=== PATIENT | female | born 1945 | race Caucasian/White ===

== ENCOUNTER 2017-11-28 18:17 | Observation (INO) | payer MEDICARE, MEDICAID ==
[~2017-11-28] VITALS: Ht 157.5 cm; Wt 60.0 kg
[~2017-11-28 18:17] MED LIST: AMLODIPINE BESYL5 MG PO; CALCIUM + D600 MG PO; CEPHALEXIN500 M1 OR; CLARITIN10 MG PO; DARVOCET N-100100 - OR; FEOSOL65 MG PO; FLAXSEED OIL1000 M1 PO; FLEXERIL OR; FLUTICASONE50 MCG; GINKGO BILOB120 MG PO; MAGNESIUM250 M1 PO; MEDDOSEPAK OR; NO HOME MEDS; PERCOCET 10/31 COMBO PO; PRILOSEC20 MG/CAP PO; PROAIR HFA IN; VITAMIN B-12500 MC1 SL; XANAX0.5 MG PO; [UNRECOGNIZED DRUG - OTHER] PO
[2017-11-28 19:53] LABS: HEMATOCRIT 35.3 % (37.0-47.0); HEMOGLOBIN 11.7 g/dl (12.0-16.0); IMMATURE GRANULOCYTES 0.2 % (0.0-5.0); MEAN CELL VOLUME 97.8 fL CALC (80.0-100.0); MEAN CORPUSCULAR HGB 32.4 pG CALC (26.0-32.0); MEAN CORPUSCULAR HGB CONC 33.1 g/L CALC (32.0-36.0); NEUT# 2.52 thou/uL (2.00-7.15); RED BLOOD COUNT 3.61 mill/uL (4.20-5.60); RED CELL DISTRI WIDTH 12.4 % (11.5-15.5)
[2017-11-28 20:10] LABS: ALBUMIN 4.5 g/dL (3.2-5.0); ALKALINE PHOSPHATASE 78 u/l (38-126); ANION GAP 12 (6-22 (CALC)); BILIRUBIN, TOTAL 0.7 mg/dL (0.0-1.4); BUN 19 mg/dL (8-23); BUN/CREATININE RATIO 32 (12-20 (CALC)); CARBON DIOXIDE 28 mmol/l (22-30); CHLORIDE 104 mmol/l (95-108); CREATININE 0.6 mg/dL (0.5-1.0); GFR > 60 ML/MIN (>=60 (CALC)); GFR FOR AFR.AMER. > 60 ML/MIN (>=60 (CALC)); POTASSIUM 3.8 mmol/l (3.5-5.1); SGOT/AST 39 u/l (9-36); SGPT/ALT 34 u/l (11-66); SODIUM 141 mmol/l (137-146); TOTAL PROTEIN 7.7 g/dL (6.3-8.2)
[2017-11-28 20:12] LABS: URINE BILIRUBIN - DIPSTICK NEGATIVE (NEGATIVE); URINE BLOOD DIPSTICK TRACE-INTACT (NEGATIVE); URINE COLOR YELLOW; URINE GLUCOSE - DIPSTICK NEGATIVE (NEGATIVE); URINE KETONE NEGATIVE (NEGATIVE); URINE LEUK ESTERASE NEGATIVE (NEGATIVE); URINE NITRITE - DIPSTICK NEGATIVE (Negative); URINE PH 6.5 (4.5-8.0); URINE PROTEIN - DIPSTICK NEGATIVE (NEG-TRACE); URINE SPECIFIC GRAVITY 1.015; URINE UROBILINOGEN - DIPSTICK 0.2 E.U./dL (0.2)
[2017-11-28 20:13] LABS: URINE CLARITY CLEAR
[2017-11-28 20:22] LABS: MYOGLOBIN 35 ng/mL (0 - 62)
[2017-11-28] MEDS ORDERED: GABAPENTIN100 MG PO (21:13)
[2017-11-28 21:20] VITALS: BP 157/78
[2017-11-28] MEDS ORDERED: NORVASC2.5 MG PO (22:16)
[2017-11-29 00:36] VITALS: BP 148/75
[2017-11-29 05:00] VITALS: BP 128/79
[2017-11-29 06:01] LABS: CHOLESTEROL HDL RATIO 2.2 (<4.4 (CALC))
[2017-11-29 08:10] VITALS: BP 133/83
[2017-11-29 11:58] VITALS: BP 120/77
[2017-11-29] MEDS ORDERED: ASPIRIN ADULT L81 M2 PO (13:45)
== END 2017-11-29 14:45 | disposition home or self-care (01) ==
LOC: ED 18:17 → ED-I 20:00 → ED 20:36 → MS2 20:37
PROVIDERS: Emergency Medicine; ADMIT Internal Medicine; ATTEND Internal Medicine
DX: R55 Syncope and collapse (principal); R00.2 Palpitations; I10 Essential (primary) hypertension; G62.9 Polyneuropathy, unspecified; Z86.73 Personal history of transient ischemic attack (TIA), and cerebral infarction without residual deficits

== ENCOUNTER 2018-04-02 07:52 | Day surgery (SDC) | payer MEDICARE, MEDICAID ==
[~2018-04-02] VITALS: Ht 157.5 cm; Wt 59.9 kg
[~2018-04-02 07:52] MED LIST changes: +ASPIRIN ADULT L81 M2 PO; +COQ10100 MG PO; +GABAPENTIN100 MG PO; +IRON45 MG PO; +METOPROLOL SUCC25 MG PO; +NORVASC2.5 MG PO; +SG ASA LOW81 M1 PO
[2018-04-02 10:44] VITALS: BP 179/88
== END 2018-04-02 11:05 | disposition home or self-care (01) ==
LOC: ENDO 07:52
PROVIDERS: ATTEND Surgery
PROC: 0DJD8ZZ Inspection of Lower Intestinal Tract, Via Natural or Artificial Opening Endoscopic (ICD-10-PCS; principal; 2018-04-02)
DX: Z12.11 Encounter for screening for malignant neoplasm of colon (principal); Z80.0 Family history of malignant neoplasm of digestive organs

== ENCOUNTER → 2018-07-14 | Outpatient (REF) | payer MEDICARE, MEDICAID ==
[2018-07-14 07:42] LABS: HEMATOCRIT 35.8 % (37.0-47.0); HEMOGLOBIN 11.4 g/dl (12.0-16.0); IMMATURE GRANULOCYTES 0.4 % (0.0-5.0); MEAN CELL VOLUME 99.2 fL CALC (80.0-100.0); MEAN CORPUSCULAR HGB 31.6 pG CALC (26.0-32.0); MEAN CORPUSCULAR HGB CONC 31.8 g/L CALC (32.0-36.0); NEUT# 2.98 thou/uL (2.00-7.15); RED BLOOD COUNT 3.61 mill/uL (4.20-5.60); RED CELL DISTRI WIDTH 12.3 % (11.5-15.5)
[2018-07-14 08:23] LABS: ALBUMIN 4.4 g/dL (3.2-5.0); ALKALINE PHOSPHATASE 63 u/l (38-126); ANION GAP 13 (6-22 (CALC)); BILIRUBIN, TOTAL 0.7 mg/dL (0.0-1.4); BUN 15 mg/dL (8-23); BUN/CREATININE RATIO 27 (12-20 (CALC)); CALCULATED LDLCHOLESTEROL 94 mg/dL (62-129 (CALC)); CARBON DIOXIDE 29 mmol/l (22-30); CHLORIDE 104 mmol/l (95-108); CHOLESTEROL HDL RATIO 2.2 (<4.4 (CALC)); CREATININE 0.6 mg/dL (0.5-1.0); GFR > 60 ML/MIN (>=60 (CALC)); GFR FOR AFR.AMER. > 60 ML/MIN (>=60 (CALC)); HDL CHOLESTEROL 89 mg/dL (>=40); POTASSIUM 4.3 mmol/l (3.5-5.1); SGOT/AST 29 u/l (9-36); SODIUM 141 mmol/l (137-146); TOTAL CHOLESTEROL 192 mg/dl (0-199); TOTAL PROTEIN 6.9 g/dL (6.3-8.2); TOTAL TRIGLYCERIDES 48 mg/dl (30-149); VLDL CHOLESTROL 10 mg/dl (0-48 (CALC))
[2018-07-14 08:46] LABS: TSH, 3RD GENERATION 1.41 uIU/mL (0.47 - 4.68)
== END | disposition home or self-care (01) ==
LOC: LAB 07:03
PROVIDERS: Internal Medicine; ATTEND Internal Medicine
DX: E03.9 Hypothyroidism, unspecified (principal); E11.65 Type 2 diabetes mellitus with hyperglycemia; E55.9 Vitamin D deficiency, unspecified; E78.49 Other hyperlipidemia; I10 Essential (primary) hypertension; M81.0 Age-related osteoporosis without current pathological fracture

== ENCOUNTER 2021-01-13 12:17 | Observation (INO) | payer MEDICARE, MEDICAID ==
[~2021-01-13] VITALS: Ht 157.5 cm; Wt 70.0 kg
--- NOTE | 2021-01-13 12:20 | NUR ---
PATIENT STATES PAIN TO LEFT SIDE OF CHEFT WALL WHERE SHE HAS TEGADERM PLACED FOR HALTER MONITOR. EKG COMPLETED AND MD NOTIFIED
--- NOTE | 2021-01-13 13:20 | NUR ---
PATEINT DENIES ANY CHEST PAIN AT THIS TIME AWAITNG LAB AND RADIOLOGY RESULTS
--- NOTE | 2021-01-13 14:34 | NUR ---
PT TO ROOM # 2. PLACED ON CARDIAC AND BP MONITORS. PT REPORTS BELCHING NUMEROUS TIMES WHILE WAITING IN THE LOBBY AND FEELS BETTER NOW. EDP NOTIFIED. CALL FLOWERS WITHIN REACH
[2021-01-13] MEDS ORDERED: METOPROLOL SUCC50 MG PO (15:12)
[2021-01-13 15:13] LABS: HEMATOCRIT 35.2 % (37.0-47.0); HEMOGLOBIN 11.5 g/dl (12.0-16.0); MEAN CELL VOLUME 99.2 fL CALC (80.0-100.0); MEAN CORPUSCULAR HGB 32.4 pG CALC (26.0-32.0); MEAN CORPUSCULAR HGB CONC 32.7 g/dL CAL (32.0-36.0); NEUT# 2.97 thou/uL (2.00-7.15); RED BLOOD COUNT 3.55 mill/uL (4.20-5.60); RED CELL DISTRI WIDTH 12.2 % (11.5-15.5)
[2021-01-13] MEDS ORDERED: ASPIRINCHW 81MG PO (15:13)
[2021-01-13] MEDS ORDERED: MP MAGNESIUM100 MG PO (15:14)
[2021-01-13] MEDS ORDERED: MULTI VIT PO (15:14)
[2021-01-13] MEDS ORDERED: VITAMIN C500 M6 PO (15:16)
[2021-01-13] MEDS ORDERED: ELDERBERRY PO (15:16)
[2021-01-13 15:25] LABS: ALBUMIN 4.7 g/dL (3.2-5.0); ALKALINE PHOSPHATASE 67 u/l (38-126); ANION GAP 13 (6-22 (CALC)); BILIRUBIN, TOTAL 0.8 mg/dL (0.0-1.4); BUN 18 mg/dL (8-23); BUN/CREATININE RATIO 33 (12-20 (CALC)); CARBON DIOXIDE 31 mmol/l (22-30); CHLORIDE 97 mmol/l (95-108); CREATININE 0.5 mg/dL (0.5-1.0); GFR > 60 ML/MIN (>=60 (CALC)); GFR FOR AFR.AMER. > 60 ML/MIN (>=60 (CALC)); POTASSIUM 4.1 mmol/l (3.5-5.1); SGOT/AST 41 u/l (9-36); SODIUM 136 mmol/l (137-146)
--- NOTE | 2021-01-13 18:22 | NUR ---
REPORT CALLED TO BK IN MED SURG
--- NOTE | 2021-01-13 18:25 | NUR ---
PATIENT TRANSPORTED TO [facility] / [facility]
[2021-01-13 18:26] VITALS: BP 136/78
--- NOTE | 2021-01-13 18:33 | NUR ---
PT ARRIVED TO [facility] ROOM 271 VIA WHEELCHAIR ACCOMPAINED BY ER STAFF. PT IS A/O X3. RESPIRATIONS ARE EVEN AND UNLABORED WITH DISTRESS NOTED. #20G RAC IN PLACE. TELE MONITORING IN PLACE. PT ORIENTED TO ROOM AND CALL LIGHT SYSTEM. ALL SAFTEY PRECAUTIONS ARE IN PLACE WITH CALL LIGHT IN REACH. WILL CONTINUE TO MONITOR.
--- NOTE | 2021-01-13 19:50 | NUR ---
TALKED WITH LAB PHLEBOT.REGARDING NEED FOR 1800 TROPONIN SHOWING NOT RECEIVED. STATED THEY WOULD BE UP SHORTLY TO GET. IF THEY DO NOT COME TO THE FLOOR I WILL DRAW THIS LAB AND SEND DOWN.
[2021-01-13 20:10] VITALS: BP 122/66
--- NOTE | 2021-01-13 20:34 | NUR ---
LAB CALLED TO REPORT POSITIVE TROP OF 0.896. PREVIOUS TROP WAS NEG. V/S ASSESSED TO BE STABLE. TELEMETRY READING OF SR79, PT C/O "MILD PRESSURE TO L.SIDE OF CHEST JUST BELOW EXTERNAL HEART MONITOR". SHE DENIES N/V AND IS NOT DIAPHORETIC. DENIES JAW OR ARM PAIN AT THIS TIME. SHE DOES REPORT "BELCHING AND GASINESS." EKG OBTAINED AND PHYSICIAN WAS NOTIFIED. NEW ORDERS FOR HEPARIN DRIP AND TRANSFER TO [facility]. SUPERVISION WAS NOTIFIED AND TRANSFER PROCEDURES WERE STARTED.
[2021-01-13 20:40] VITALS: BP 133/67
--- NOTE | 2021-01-13 22:00 | NUR ---
PTT/INR LABS HAVE BEEN ORDERED, AWAITING RESULTS FOR BOLUS AND HEP DRIP TO BE STARTED. PT DENIES ANY CHANGES IN SYMPTOMS OTHER THAN SHARP PAIN IN L.CALF THAT LASTED ONE MINUTE AND WENT AWAY. NO S/O REDNESS, NOT HOT TO THE TOUCH AT THIS TIME. POC DISCUSSED WITH THE PT, SHE STATES "I FEEL LIKE THIS IS JUST A LOT OF FUSS OVER NOTHING." I EDUCATED HER ON WHAT THE LAB RESULTS MEAN AND WHAT POC THAT MAY BE NEEDED FOR FURTHER CARE. SHE AGREED TO TRANSFER. WILL FOLLOW W/CONSENT FORM WHEN HAVE AN ACCEPTING HOSPITAL.
--- NOTE | 2021-01-13 22:10 | NUR ---
[facility] HAS REPORTED THAT THEY DO NOT HAVE ANY AVAILABLE BEDS AT THIS TIME AND THEY REQUEST PT BE TRANSPORTED TO A DIFFERENT HOSPITAL W/PT'S ANIMAL HERDER HAS CARDIAC PRACTICING PRIVILEGES.
--- NOTE | 2021-01-13 22:20 | NUR ---
[facility], [facility] AND [facility] CONTACTED WITH NO BEDS AVAILABLE AT THIS TIME. AWAITING POSSIBLE BED ASSIGNMENT FROM [facility]. PT STABLE AT THIS TIME.
[2021-01-13 23:04] LABS: ACT PARTIAL THROMBO TIME 25.1 SECONDS (20.0-32.5); PROTHROMBIN TIME 10.4 SECONDS (9.0-12.5)
[2021-01-13 23:34] VITALS: BP 112/60; BP 133/67
--- NOTE | 2021-01-14 00:25 | NUR ---
LAB ON FLOOR FOR TROPONIN DRAW.
--- NOTE | 2021-01-14 00:40 | NUR ---
SUPERVISION CONTACTING MULTIPLE HOSPITALS IN THE REGION FOR PT TRANSPORT. [facility], [facility]. NO AVAILABLE BEDS AT THIS TIME.
--- NOTE | 2021-01-14 02:10 | NUR ---
BED ASSIGNMENT RECIEVED FROM [facility]. RECEIVING PHYSICIAN REPORTED TO BE DR. Shantanu MATHIS, BED [id number] [facility]. [facility] CONTACTED FOR TRANSPORT, ETA 30 MINUTES.
--- NOTE | 2021-01-14 02:55 | NUR ---
PT TRANSPORTED OFF MED SURG UNIT VIA STRETCHER ACCOMPANIED BY [facility] STAFF X2. PT IN STABLE CONDITION AT THE TIME LEAVING UNIT.
--- NOTE | 2021-01-14 03:25 | NUR ---
REPORT CALLED TO LILIAN AT [facility].
== END 2021-01-14 02:55 | disposition short-term general hospital (02) ==
LOC: ED 12:17 → ED-I 16:32 → ED 16:57 → MS2 16:58
PROVIDERS: Family Medicine; Internal Medicine; ADMIT Hospitalist; ATTEND Hospitalist
DX: I21.4 Non-ST elevation (NSTEMI) myocardial infarction (principal); I48.0 Paroxysmal atrial fibrillation; F41.9 Anxiety disorder, unspecified; Z86.73 Personal history of transient ischemic attack (TIA), and cerebral infarction without residual deficits; Z20.822 Contact with and (suspected) exposure to COVID-19
CPT/HCPCS: J1644

== ENCOUNTER 2021-01-24 09:01 | Emergency (ER) | payer MEDICARE, MEDICAID ==
[~2021-01-24] VITALS: Ht 157.5 cm; Wt 56.4 kg
[~2021-01-24 09:01] MED LIST changes: +ASPIRINCHW 81MG PO; +ELDERBERRY PO; +METOPROLOL SUCC50 MG PO; +MP MAGNESIUM100 MG PO; +MULTI VIT PO; +VITAMIN C500 M6 PO
[2021-01-24] MEDS ORDERED: LIPITOR20 MG PO (11:02)
[2021-01-24 11:03] LABS: HEMATOCRIT 34.8 % (37.0-47.0); HEMOGLOBIN 11.2 g/dl (12.0-16.0); IMMATURE GRANULOCYTES 0.2 % (0.0-5.0); MEAN CELL VOLUME 100.3 fL CALC (80.0-100.0); MEAN CORPUSCULAR HGB 32.3 pG CALC (26.0-32.0); MEAN CORPUSCULAR HGB CONC 32.2 g/dL CAL (32.0-36.0); NEUT# 4.38 thou/uL (2.00-7.15); RED BLOOD COUNT 3.47 mill/uL (4.20-5.60); RED CELL DISTRI WIDTH 12.9 % (11.5-15.5)
[2021-01-24] MEDS ORDERED: ZOFRAN4 MG/TAB PO (11:04)
[2021-01-24] MEDS ORDERED: CLOPIDOGREL75 MG PO (11:05)
[2021-01-24] MEDS ORDERED: ENTRESTO 97-1031 TAB PO (11:05)
[2021-01-24 11:21] LABS: URINE BILIRUBIN - DIPSTICK NEGATIVE (NEGATIVE); URINE BLOOD DIPSTICK NEGATIVE (NEGATIVE); URINE COLOR YELLOW; URINE GLUCOSE - DIPSTICK NEGATIVE (NEGATIVE); URINE KETONE TRACE mg/dL (NEGATIVE); URINE LEUK ESTERASE NEGATIVE (NEGATIVE); URINE PROTEIN - DIPSTICK NEGATIVE (NEG-TRACE); URINE SPECIFIC GRAVITY <=1.005; URINE UROBILINOGEN - DIPSTICK 0.2 E.U./dL (0.2)
[2021-01-24 11:23] LABS: URINE NITRITE - DIPSTICK NEGATIVE (Negative)
[2021-01-24 11:27] LABS: ALBUMIN 3.9 g/dL (3.2-5.0); ALKALINE PHOSPHATASE 61 u/l (38-126); BUN 18 mg/dL (8-23); BUN/CREATININE RATIO 36 (12-20 (CALC)); CREATININE 0.5 mg/dL (0.5-1.0); GFR > 60 ML/MIN (>=60 (CALC)); GFR FOR AFR.AMER. > 60 ML/MIN (>=60 (CALC)); MAGNESIUM 2.1 mg/dL (1.6-2.3); SGOT/AST 47 u/l (9-36); SODIUM 136 mmol/l (137-146); TOTAL PROTEIN 6.8 g/dL (6.3-8.2)
[2021-01-24 11:28] LABS: ANION GAP 10 (6-22 (CALC)); CARBON DIOXIDE 22 mmol/l (22-30); CHLORIDE 109 mmol/l (95-108); POTASSIUM 5.2 mmol/l (3.5-5.1)
[2021-01-24 11:40] LABS: MYOGLOBIN 32 ng/mL (0 - 62)
[2021-01-24 11:58] LABS: TSH, 3RD GENERATION 0.65 uIU/mL (0.47 - 4.68)
[2021-01-24 15:15] VITALS: BP 108/70
== END 2021-01-24 15:15 | disposition short-term general hospital (02) ==
LOC: ED 09:01
PROVIDERS: Emergency Medicine
DX: I47.1 Supraventricular tachycardia (principal); R79.89 Other specified abnormal findings of blood chemistry; R07.89 Other chest pain; I48.91 Unspecified atrial fibrillation; I10 Essential (primary) hypertension; G62.9 Polyneuropathy, unspecified; Z86.73 Personal history of transient ischemic attack (TIA), and cerebral infarction without residual deficits; Z95.5 Presence of coronary angioplasty implant and graft; Z20.822 Contact with and (suspected) exposure to COVID-19

== ENCOUNTER 2021-10-25 09:00 | Emergency (ER) | payer MEDICARE, MEDICAID ==
[~2021-10-25] VITALS: Ht 157.5 cm; Wt 53.0 kg
[~2021-10-25 09:00] MED LIST changes: +CLOPIDOGREL75 MG PO; +COQ-10100 M1 PO; +ENTRESTO 97-1031 TAB PO; +LIPITOR20 MG PO; +MAGNESIUM200 MG PO; +MULTI-VITAMIN GUMMIE PO; +ZOFRAN4 MG/TAB PO
[2021-10-25 09:07] VITALS: BP 183/81
[2021-10-25 09:17] VITALS: BP 179/86
[2021-10-25 09:30] VITALS: BP 173/79
[2021-10-25 09:31] LABS: HEMOGLOBIN 12.4 g/dl (12.0-16.0); MEAN CELL VOLUME 102.2 fL CALC (80.0-100.0); MEAN CORPUSCULAR HGB 33.3 pG CALC (26.0-32.0); MEAN CORPUSCULAR HGB CONC 32.6 g/dL CAL (32.0-36.0); NEUT# 2.42 thou/uL (2.00-7.15); RED BLOOD COUNT 3.72 mill/uL (4.20-5.60); RED CELL DISTRI WIDTH 12.2 % (11.5-15.5)
[2021-10-25 09:46] LABS: ALBUMIN 4.7 g/dL (3.2-5.0); ALKALINE PHOSPHATASE 85 u/l (38-126); ANION GAP 10 (6-22 (CALC)); BILIRUBIN, TOTAL 1.1 mg/dL (0.0-1.4); BUN 15 mg/dL (8-23); BUN/CREATININE RATIO 26 (12-20 (CALC)); CARBON DIOXIDE 31 mmol/l (22-30); CHLORIDE 99 mmol/l (95-108); CREATININE 0.6 mg/dL (0.5-1.0); GFR FOR AFR.AMER. > 60 ML/MIN (>=60 (CALC)); GFR OTHER RACES > 60 ML/MIN (>=60 (CALC)); POTASSIUM 3.8 mmol/l (3.5-5.1); SGOT/AST 60 u/l (9-36); SODIUM 135 mmol/l (137-146)
[2021-10-25 09:49] LABS: TOTAL PROTEIN 8.1 g/dL (6.3-8.2)
[2021-10-25 10:00] VITALS: BP 181/97
[2021-10-25 10:41] VITALS: BP 174/97
[2021-10-25] MEDS ORDERED: VOLTAREN1%GEL TOP (13:12)
[2021-10-25 13:22] VITALS: BP 174/97
== END 2021-10-25 13:33 | disposition home or self-care (01) ==
LOC: ED 09:00
PROVIDERS: Family Medicine
DX: R07.9 Chest pain, unspecified (principal); I10 Essential (primary) hypertension; I25.10 Atherosclerotic heart disease of native coronary artery without angina pectoris; I48.91 Unspecified atrial fibrillation; G62.9 Polyneuropathy, unspecified; Z95.5 Presence of coronary angioplasty implant and graft; Z20.822 Contact with and (suspected) exposure to COVID-19

== ENCOUNTER 2022-01-24 06:53 | Emergency (ER) | payer MEDICARE, MEDICAID ==
[~2022-01-24] VITALS: Ht 157.5 cm; Wt 53.2 kg
[2022-01-24] VITALS (10 sets, daily range): BP systolic 149–199; BP diastolic 71–166
[~2022-01-24 06:53] MED LIST changes: +VOLTAREN1%GEL TOP
[2022-01-24 08:06] LABS: URINE BILIRUBIN - DIPSTICK NEGATIVE (NEGATIVE); URINE BLOOD DIPSTICK NEGATIVE (NEGATIVE); URINE COLOR YELLOW; URINE GLUCOSE - DIPSTICK NEGATIVE (NEGATIVE); URINE KETONE NEGATIVE (NEGATIVE); URINE LEUK ESTERASE NEGATIVE (NEGATIVE); URINE PROTEIN - DIPSTICK NEGATIVE (NEG-TRACE); URINE SPECIFIC GRAVITY <=1.005; URINE UROBILINOGEN - DIPSTICK 0.2 E.U./dL (0.2)
[2022-01-24 08:08] LABS: URINE NITRITE - DIPSTICK NEGATIVE (Negative)
[2022-01-24 08:26] LABS: HEMATOCRIT 36.5 % (37.0-47.0); HEMOGLOBIN 12.2 g/dl (12.0-16.0); MEAN CELL VOLUME 99.5 fL CALC (80.0-100.0); MEAN CORPUSCULAR HGB 33.2 pG CALC (26.0-32.0); MEAN CORPUSCULAR HGB CONC 33.4 g/dL CAL (32.0-36.0); NEUT# 3.47 thou/uL (2.00-7.15); RED BLOOD COUNT 3.67 mill/uL (4.20-5.60); RED CELL DISTRI WIDTH 12.3 % (11.5-15.5)
[2022-01-24 08:40] LABS: ALBUMIN 4.7 g/dL (3.2-5.0); ALKALINE PHOSPHATASE 78 u/l (38-126); ANION GAP 11 (6-22 (CALC)); BILIRUBIN, TOTAL 1.2 mg/dL (0.0-1.4); BUN 17 mg/dL (8-23); BUN/CREATININE RATIO 28 (12-20 (CALC)); CARBON DIOXIDE 30 mmol/l (22-30); CHLORIDE 101 mmol/l (95-108); CREATININE 0.6 mg/dL (0.5-1.0); GFR FOR AFR.AMER. > 60 ML/MIN (>=60 (CALC)); GFR OTHER RACES > 60 ML/MIN (>=60 (CALC)); POTASSIUM 3.8 mmol/l (3.5-5.1); SGOT/AST 69 u/l (9-36); SODIUM 138 mmol/l (137-146); TOTAL PROTEIN 7.4 g/dL (6.3-8.2)
[2022-01-24 08:43] LABS: MYOGLOBIN 76 ng/mL (0 - 62)
[2022-01-24] MEDS ORDERED: NAPROXEN500 MG PO (09:54)
== END 2022-01-24 10:22 | disposition home or self-care (01) ==
LOC: ED 06:53
PROVIDERS: Emergency Medicine
DX: S00.83XA Contusion of other part of head, initial encounter (principal); S73.102A Unspecified sprain of left hip, initial encounter; I10 Essential (primary) hypertension; G62.9 Polyneuropathy, unspecified; I48.91 Unspecified atrial fibrillation; I25.2 Old myocardial infarction; W01.0XXA Fall on same level from slipping, tripping and stumbling without subsequent striking against object, initial encounter; Y92.009 Unspecified place in unspecified non-institutional (private) residence as the place of occurrence of the external cause; Z86.73 Personal history of transient ischemic attack (TIA), and cerebral infarction without residual deficits; Z95.5 Presence of coronary angioplasty implant and graft

== ENCOUNTER 2023-01-04 16:12 | Emergency (ER) | payer MEDICARE, MEDICAID ==
[~2023-01-04] VITALS: Ht 157.5 cm; Wt 50.0 kg
[2023-01-04] VITALS (8 sets, daily range): BP systolic 142–186; BP diastolic 70–121
[~2023-01-04 16:12] MED LIST changes: +NAPROXEN500 MG PO
[2023-01-04 17:36] LABS: URINE BILIRUBIN - DIPSTICK Negative (NEGATIVE); URINE BLOOD DIPSTICK Negative (NEGATIVE); URINE GLUCOSE - DIPSTICK Negative (NEGATIVE); URINE KETONE Negative (NEGATIVE); URINE LEUK ESTERASE Trace (NEGATIVE); URINE NITRITE - DIPSTICK Negative (Negative); URINE PROTEIN - DIPSTICK Negative (NEG-TRACE); URINE SPECIFIC GRAVITY <=1.005; URINE UROBILINOGEN - DIPSTICK 0.2 E.U./dL (0.2)
[2023-01-04 17:37] LABS: URINE COLOR Yellow
[2023-01-04 17:53] LABS: BASO% 0.6 % (0-3); EOS% 3.9 % (0-8); HEMATOCRIT 33.8 % (37.0-47.0); HEMOGLOBIN 10.7 g/dl (12.0-16.0); IMMATURE GRANULOCYTES 0.2 % (0.0-5.0); LYMPH% 21.5 % (15-41); MEAN CELL VOLUME 102.1 fL CALC (80.0-100.0); MEAN CORPUSCULAR HGB 32.3 pG CALC (26.0-32.0); MEAN CORPUSCULAR HGB CONC 31.7 g/dL CAL (32.0-36.0); MONO% 9.3 % (2-13); NEUT# 3.27 thou/uL (2.00-7.15); NEUT% 64.5 % (42-76); RED BLOOD COUNT 3.31 mill/uL (4.20-5.60); RED CELL DISTRI WIDTH 12.5 % (11.5-15.5)
[2023-01-04 18:07] LABS: ALBUMIN 3.6 g/dL (3.2-5.0); ALKALINE PHOSPHATASE 87 u/l (38-126); ANION GAP 9 (6-22 (CALC)); BUN 21 mg/dL (8-23); BUN/CREATININE RATIO 36 (12-20 (CALC)); CARBON DIOXIDE 30 mmol/l (22-30); CHLORIDE 99 mmol/l (95-108); CREATININE 0.6 mg/dL (0.5-1.0); GFR FOR AFR.AMER. > 60 ML/MIN (>=60 (CALC)); GFR OTHER RACES > 60 ML/MIN (>=60 (CALC)); POTASSIUM 3.7 mmol/l (3.5-5.1); SGOT/AST 42 u/l (9-36); SODIUM 135 mmol/l (137-146); TOTAL PROTEIN 6.8 g/dL (6.3-8.2)
[2023-01-04 18:09] LABS: BILIRUBIN, TOTAL 0.6 mg/dL (0.02-1.3)
== END 2023-01-04 20:07 | disposition home or self-care (01) ==
LOC: ED 16:12
PROVIDERS: Nurse Practitioner
DX: R50.9 Fever, unspecified (principal); I10 Essential (primary) hypertension; I48.91 Unspecified atrial fibrillation; G62.9 Polyneuropathy, unspecified; I25.2 Old myocardial infarction; Z86.73 Personal history of transient ischemic attack (TIA), and cerebral infarction without residual deficits; Z20.822 Contact with and (suspected) exposure to COVID-19

== ENCOUNTER 2023-12-31 19:42 | Emergency (ER) | payer MEDICARE, MEDICAID ==
[~2023-12-31] VITALS: Ht 157.5 cm; Wt 60.0 kg
[2023-12-31 20:06] VITALS: BP 164/81
[2023-12-31] MEDS ORDERED: NITROGLYCERIN 0.4 MG/TAB SL ONE (20:10)
[2023-12-31] MEDS ORDERED: ASPIRIN 81 MG/TAB PO ONE (20:10)
[2023-12-31 20:28] LABS: BASO% 0.4 % (0-3); EOS% 2.4 % (0-8); HEMATOCRIT 33.4 % (37.0-47.0); HEMOGLOBIN 11.3 g/dl (12.0-16.0); IMMATURE GRANULOCYTES 0.2 % (0.0-5.0); LYMPH% 34.4 % (15-41); MEAN CELL VOLUME 100.6 fL CALC (80.0-100.0); MEAN CORPUSCULAR HGB CONC 33.8 g/dL CAL (32.0-36.0); MONO% 12.9 % (2-13); NEUT# 2.47 thou/uL (2.00-7.15); NEUT% 49.7 % (42-76); RED BLOOD COUNT 3.32 mill/uL (4.20-5.60); RED CELL DISTRI WIDTH 12.6 % (11.5-15.5)
[2023-12-31 20:46] LABS: ALBUMIN 4.3 g/dL (3.2-5.0); ALKALINE PHOSPHATASE 63 u/l (38-126); ANION GAP 7 (6-22 (CALC)); BILIRUBIN, TOTAL 1.3 mg/dL (0.02-1.3); BUN 24 mg/dL (8-23); BUN/CREATININE RATIO 41 (12-20 (CALC)); CARBON DIOXIDE 27 mmol/l (22-30); CHLORIDE 105 mmol/l (95-108); CREATININE 0.6 mg/dL (0.5-1.0); ESTIMATED GFR 91 ML/MIN (>=90 (CALC)); POTASSIUM 4.2 mmol/l (3.5-5.1); SGOT/AST 56 u/l (9-36); SODIUM 135 mmol/l (137-146); TOTAL PROTEIN 7.2 g/dL (6.3-8.2)
[2023-12-31 20:53] LABS: INTERNATIONAL NORMALIZED RATIO 1.2 RATIO (0.7-1.3)
[2023-12-31 20:54] LABS: PROTHROMBIN TIME 11.2 SECONDS (9.0-12.5)
[2023-12-31 21:00] LABS: D-DIMER 0.57 mg/L (0.19-0.60)
[2023-12-31 21:15] VITALS: BP 146/114
[2023-12-31 21:30] VITALS: BP 143/69
[2023-12-31 21:43] VITALS: BP 143/69
== END 2023-12-31 22:00 | disposition home or self-care (01) ==
LOC: ED 19:42
PROVIDERS: Family Medicine
DX: R07.89 Other chest pain (principal); R09.02 Hypoxemia; I10 Essential (primary) hypertension; I48.91 Unspecified atrial fibrillation; G62.9 Polyneuropathy, unspecified; I25.2 Old myocardial infarction; Z95.5 Presence of coronary angioplasty implant and graft; Z86.73 Personal history of transient ischemic attack (TIA), and cerebral infarction without residual deficits; Z79.82 Long term (current) use of aspirin; R06.02 Shortness of breath